=== PATIENT | male | born 1970 | race Caucasian/White ===

== ENCOUNTER 2021-10-04 06:15 | Day surgery (SDC) | payer OTHER ==
[~2021-10-04 06:15] MED LIST: AMITRIPTYLINE H10 MG; LEVOTHROID100 MCG; LEVSIN/SL0.125 MG PO; METHYLPRED4 MG/DOSE- PO; NEURONTIN300 MG; PROTONIX40 MG PO; SAVELLA25 MG; TAMS0.4C
== END 2021-10-04 15:00 | disposition home or self-care (01) ==
LOC: CIR.AMB 06:15
PROVIDERS: ATTEND Urology
DX: N20.1 Calculus of ureter (principal); Z20.822 Contact with and (suspected) exposure to COVID-19